=== PATIENT | male | born 1995 ===

== ENCOUNTER 2019-10-17 05:52 | Day surgery (SDC) | payer OTHER ==
[~2019-10-17] VITALS: Ht 170.2 cm; Wt 95.3 kg
[2019-10-17] VITALS (17 sets, daily range): BP systolic 21–132; BP diastolic 45–74
[~2019-10-17 05:52] MED LIST: NKM
[2019-10-17] MEDS ORDERED: Dexamethasone 20mg/5ml IVP ONE (07:00)
[2019-10-17] MEDS ORDERED: ceFAZolin sod 1 GM in NS 55 ML IVPB ONE (07:00)
[2019-10-17] MEDS ORDERED: LR 1000ml 1,000 ML IVLG SCH (08:56)
[2019-10-17] MEDS ORDERED: Lidocaine 1% Plain 30 ml INJ ONE ×2 (08:57→09:29)
[2019-10-17] MEDS ORDERED: Ketorolac 30mg Inj IV PRN ×2 (09:00)
[2019-10-17] MEDS ORDERED: Milk of Magnesia 30ml Ud ORAL PRN (09:00)
[2019-10-17] MEDS ORDERED: Atropine Sulfate 0.4mg/ml inj IVP PRN (09:00)
[2019-10-17] MEDS ORDERED: LORazepam 0.5mg tab ORAL PRN (09:00)
[2019-10-17] MEDS ORDERED: LORazepam Inj 2mg/ml 1ml IV PRN (09:00)
[2019-10-17] MEDS ORDERED: Midazolam 2mg/2ml Inj IVP PRN (09:00)
[2019-10-17] MEDS ORDERED: HYDROmorphone 1mg/ml Carpuject IVP PRN (09:00)
[2019-10-17] MEDS ORDERED: HYDROcodone/Acetamin 7.5/325 tab ORAL PRN (09:00)
[2019-10-17] MEDS ORDERED: Metoclopramide 10mg/2ml Inj IVP PRN (09:00)
[2019-10-17] MEDS ORDERED: fentaNYL 100 mcg/2 mL IV PRN (09:00)
[2019-10-17] MEDS ORDERED: Chloraseptic Spray 20mL Bottle ORAL PRN (09:00)
[2019-10-17] MEDS ORDERED: HYDROcodone/Acetamin 10/325 tab ORAL PRN ×2 (09:00→09:15)
[2019-10-17] MEDS ORDERED: HYDROcodone/Acetamin 5/325 tab ORAL PRN ×2 (09:00→09:15)
[2019-10-17] MEDS ORDERED: Labetalol 5mg/ml 20ml vial IV PRN (09:00)
[2019-10-17] MEDS ORDERED: Meperidine 50mg/ml Inj(FOR RIGORS ONLY) IVP PRN (09:00)
[2019-10-17] MEDS ORDERED: DiphenhydrAMINE 50mg/ml Inj IVP PRN (09:00)
[2019-10-17] MEDS ORDERED: Hydromorphone 0.5mg/0.5ml inj IVP PRN (09:00)
[2019-10-17] MEDS ORDERED: Acetaminophen (Non formulary) 100 ML IV ONE (09:00)
[2019-10-17] MEDS ORDERED: oxyCODONE HCL/Acetaminophen 5/325mg ORAL PRN (09:00)
--- NOTE | 2019-10-17 09:00 | Anethesia Preoperative Eval ---
Anesthesia Pre-op PMH/ROS General Date of Evaluation: Oct 17, 2019 Time of Evaluation: 09:37 Anesthesiologist: Neva ASA Score: ASA 2 Mallampati Score Class I : Soft palate, uvula, fauces, pillars visible Class II: Soft palate, uvula, fauces visible Class III: Soft palate, base of uvula visible Class IV: Only hard plate visible Mallampati Classification: Class I Surgeon: Pearl Diagnosis: Back Pain Surgical Procedure: L4-5 Microdiscetomy, Decompressdion Anesthesia History: none Family History: no anesthesia problems Allergies: Coded Allergies: No Known Allergies (Unverified , 10/15/19) Medications: see eMAR Patient NPO?: Yes NPO Date: Oct 16, 2019 NPO Time: 1999 Past Medical History Other: obesity - BMI 34 Anesthesia Pre-op Phys. Exam Physician Exam Last Vital Signs Date Time Temp Pulse Resp B/P (MAP) Pulse Ox O2 Delivery O2 Flow Rate FiO2 10/17/19 06:45 97.8 76 20 120/74 (89) 98 10/17/19 06:32 Room Air Constitutional: NAD Neurologic: CN 2-12 intact Cardiovascular: RRR Respiratory: CTA Gastrointestinal: S/NT/ND Airway Exam Mallampati Score: Class I MO: full ROM: full Teeth: intact Anesthesia Pre-op A/P Risk Assessment & Plan Assessment: ASA 2 Plan: GA Status Change Before Surgery: No Pre-Antibiotics Dru Grams Ancef IV Given Within 1 Hr of Incision: Yes Time Given: 09:51 Felipe Hooks MD Oct 17, 2019 09:00
[2019-10-17] MEDS ORDERED: Dexamethasone 4mg/ml vial ONE (09:01)
[2019-10-17] MEDS ORDERED: Sodium Chloride 10ml vial INJ ONE (09:01)
[2019-10-17] MEDS ORDERED: Lidocaine 1% MPF 10mg/ml 5ml ONE (09:01)
--- NOTE | 2019-10-17 09:15 | Pre-Procedure Note/Attestation ---
Pre-Procedure Note/Attestation Complete Prior to Procedure Planned Procedure: not applicable Procedure Narrative: L4L5 mirodiscectomy Indications for Procedure Pre-Operative Diagnosis: HNP Attestation I attest that I discussed the nature of the procedure; its benefits; risks and complications; and alternatives (and the risks and benefits of such alternatives ), prior to the procedure, with the patient (or the patient's legal wire rope sales representative). I attest that, if there was a reasonable possibility of needing a blood transfusion, the patient (or the patient's legal wire rope sales representative) was given the [facility] standardized written summary, pursuant to the [employer] Blood Safety Act ([place] Health and Safety Code # 1645, as amended). I attest that I re-evaluated the patient just prior to the surgery and that there has been no change in the patient's H&P, except as documented below: Vance Kang MD Oct 17, 2019 09:15
[2019-10-17] MEDS ORDERED: Rocuronium Bromide 50mg/5ml Inj IV ONE (09:27)
[2019-10-17] MEDS ORDERED: Thrombin 5000 units TOPIC ONE (09:29)
[2019-10-17] MEDS ORDERED: Gelfoam Size TOPIC ONE (09:29)
[2019-10-17] MEDS ORDERED: Bacitracin 50000 Units Vial ONE (09:29)
[2019-10-17] MEDS ORDERED: Propofol 1,000mg/ 100ml btl IV ONE (09:30)
[2019-10-17] MEDS ORDERED: Sterile Water Irrig 1000ml IRRIG ONE (09:30)
[2019-10-17] MEDS ORDERED: LR 1000ml ONE (09:30)
[2019-10-17] MEDS ORDERED: fentaNYL 100 mcg/2 mL IV ONE (10:37)
[2019-10-17] MEDS ORDERED: NS Irrig 1000ml IRRIG ONE (10:59)
[2019-10-17] MEDS ORDERED: Neostigmine 1mg/ml 10ml Inj ONE (11:04)
[2019-10-17] MEDS ORDERED: Glycopyrrolate 0.2mg/ml 1ml Vial ONE (11:04)
[2019-10-17] MEDS ORDERED: D5 1/2NS 1,000 ML IV SCH (11:16)
--- NOTE | 2019-10-17 11:16 | Brief Operative Note ---
Immediate Post Operative Note Operative Note Pre-op Diagnosis: HNP Procedure: L4-L5 microdiscectomy Post-op Diagnosis: same as pre-op Findings: consistent w/pre-op dx studies Surgeon: Pearl RODRIGUES Manager Inventory Management: Rell PIERRE Anesthesiologist: Neva RODRIGUES Anesthesia: general Specimen: yes Complications: none Condition: stable Fluids: anesthesia Estimated Blood Loss: minimal Drains: none Implant(s) used?: No Vance Kang MD Oct 17, 2019 11:16
[2019-10-17] MEDS ORDERED: Naloxone 0.4mg/ml Inj IVP PRN (11:30)
--- NOTE | 2019-10-17 11:37 | Immediate Post-Op Evaluation ---
Immediate Post-Op Evalulation Immediate Post-Op Evalulation Procedure: L4-5 Microdiscetomy, Decompressdion Date of Evaluation: Oct 17, 2019 Time of Evaluation: 11:47 IV Fluids: 1000 LR Blood Products: 0 Estimated Blood Loss: 25 Urinary Output: 0 Blood Pressure Systolic: 113 Blood Pressure Diastolic: 48 Pulse Rate: 71 Respiratory Rate: 16 O2 Sat by Pulse Oximetry: 100 Temperature (Fahrenheit): 97 Pain Score (1-10): 2 Nausea: No Vomiting: No Complications 0 Patient Status: awake, reacts, patent, extubated, none Hydration Status: adequate Dru Grams Anesthesia Given Within 1 Hr of Incision: Yes Time Given: 09:51 Felipe Hooks MD Oct 17, 2019 11:37
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
--- NOTE | 2019-10-17 13:15 | NUR ---
NURSE NOTES: REC'D FROM PACU SP L4-L5 MICRODISCECTOMY AND DECOMPRESSION. AWAKE ALERT. PAIN SCALE 5/10. BACK DRESSING DRY AND INTACT. ICE PACK ON. NO CO NUMBNESS TINGLING BLE. IN NO DISTRESS. WILL MONITOR PT.
--- NOTE | 2019-10-17 13:50 | Diagnostic Imaging Report ---
Indication: Back pain. Technique: Fluoroscopic imaging. Operating Physician: Vance Kang MD Total fluoroscopy time: 4.7 seconds Total fluoroscopy dose: 3.05 mGy Total number fluoroscopic images submitted: 1 Radiologist not present during image acquisition. Comparison: None Findings: Single procedural fluoroscopic image of the lumbar spine submitted for archival the PACS. Images demonstrates a surgical device projecting posterior to the lumbar spine at the level of L5. IMPRESSION: Procedural fluoroscopic imaging. Please see procedural/operative report.
--- NOTE | 2019-10-17 15:00 | Operative Note - Dictated ---
DATE OF OPERATION: 10/17/2019 SURGEON: Vance Kang, Ph.D., M.D. SALES SUPPORT ENGINEER: IGNACIO Zheng. ANESTHESIA: Felipe Hooks M.D. general with intubation. ESTIMATED BLOOD LOSS: Minimal. PREOPERATIVE DIAGNOSIS: L4-L5 herniated nucleus pulposus. POSTOPERATIVE DIAGNOSIS: L4-L5 herniated nucleus pulposus. OPERATIVE PROCEDURE: Lumbar microdiskectomy L4-L5 with intraoperative fluoroscopy interpreted by surgeon, local anesthetic applied by surgeon, intraoperative monitoring SSEP. COMPLICATIONS: None. POSTOPERATIVE CONDITION: Good/stable. DRAINS: None. DESCRIPTION OF PROCEDURE: The patient was brought to the operating room and in the supine position, general anesthesia with intubation was induced. IV antibiotics, IV Decadron were administered 30 minutes prior to incision time. After appropriate positioning in the prone position, the lumbodorsal spine was sterilely prepped. Under sterile condition, spinal needle was placed in the subcutaneous tissue and a cross-table imaging was obtained interpreted by surgeon demonstrating the correct level for the dissection. Level was marked. Needle removed. Back re-sterilely prepped and draped free in usual sterile fashion. A longitudinal midline incision over the involved interval was sharply placed the dermis and epidermis. Electrocautery dissection was carried through the subcutaneous tissue to the level of lumbodorsal fascia. It was incised at the midline. The respective lamina with pars interarticularis at L4 identified. Retractors placed. Confirmation of interval with marker in place cross-table image under sterile conditions. Position of the marker were recorded. Marker removed. Hemilaminotomy left inferior L4. Ligamentum flavum excision. Dissection lateral to the dural tube. No clear identification of the disc. Subligamentous herniated nucleus pulposus identified. Annulotomy followed diskectomy not exceeding 13 mm in posterior to anterior, medial to lateral, and lateral to medial. Irrigation disc space no further fragments. SSEP monitoring stable. General utilization by nerve hook revealed no further impingement from the posterior anulus. FloSeal applied. Wound irrigated with antibiotic-containing saline. Sequential reapproximation with Vicryl suture material of the lumbodorsal fascia and subcutaneous tissue. Dermis and epidermis reapproximated with staple sutures followed by local anesthetic 1% lidocaine with epinephrine subcutaneously bilateral lateral aspects of the wound. Sterile bandage applied, maintained in place with tape. The patient carefully turned from the prone to the supine position on the transport bed where he was awakened, extubated in the operating room, and transported to postop recovery in good stable condition. Vance Kang M.D. DR: LE JOB#: [id number] CC:
--- NOTE | 2019-10-17 15:41 | NUR ---
P.T Note: P.T evaluation completed s/p L-spine microdiskectomy, Laminectomy POD #0. P.T instructions and educations re: spinal precautions and proper body mechanics provided to patient and family members thru written handout, demonstration and practice. Pt and family were able to verbalize understanding : patient displayed good return demonstration. Pt is currently functioning within the surgical guidelines safely and independently. Skilled P.T service no longer needed at this time. DC P.T services.
--- NOTE | 2019-10-17 15:44 | NUR ---
NURSE NOTES: dr maria fernanda penaloza called re pt. back from surgery. seen by PT. AMBULATED AND HAS VOIDED. AND WILL BE DISCHARGED. OK WITH DR PENALOZA.
--- NOTE | 2019-10-17 16:20 | NUR ---
NURSE NOTES: DISCHARGED HOME ACCPD BY IN STABLE CONDITION. DC INSTRUCTIONS GIVEN. PT STATES HE HAS HOME PRESCRIPTION MEDS.
[2019-10-17] MEDS ORDERED: D5 1/2NS 1000ml IV ONE (16:48)
[2019-10-17] MEDS ORDERED: ceFAZolin sod 1 GM in D5W 55 ML IV SCH (18:00)
[2019-10-18 16:30] VITALS: BP 134/64
--- NOTE | 2019-10-18 16:30 | 48 Hour Post Anesthesia Eval ---
Post Anesthesia Evaluation Procedure: L4-5 Microdiscetomy, Decompressdion Date of Evaluation: Oct 18, 2019 Time of Evaluation: 16:30 Blood Pressure Systolic: 134 0: 64 Pulse Rate: 70 O2 Sat by Pulse Oximetry: 98 Airway: patent Nausea: No Vomiting: No Hydration Status: adequate Mental Status/LOC: patient returned to baseline Post-Anesthesia Complications: none Follow-up care needed: N/A Anali Felix CRNA Oct 18, 2019 16:30
== END 2019-10-17 16:49 | disposition home or self-care (01) ==
LOC: SUR 05:52 → 3E 12:14
DX: M51.26 Other intervertebral disc displacement, lumbar region (principal); Z87.891 Personal history of nicotine dependence; E66.9 Obesity, unspecified; Z68.32 Body mass index [BMI] 32.0-32.9, adult
CPT/HCPCS: 36415; 63030; 72020; 76000; 86850; 86900; 86901; 87081; 96360; 97161; J0690; J1100; J1170; J2001; J2250; J2405; J2704; J2710; J3010; J7120; 94003; 94150